=== PATIENT | male | born 1950 | race Two or more races ===

== ENCOUNTER 2019-01-13 18:10 | Emergency (ER) | payer OTHER ==
[~2019-01-13] VITALS: Ht 165.1 cm; Wt 71.2 kg
[~2019-01-13 18:10] MED LIST: COLACE100 MG PO; PERCOCET 5-3251 EACH PO
== END 2019-01-13 22:35 | disposition home or self-care (01) ==
LOC: ER 18:10
DX: K60.0 Acute anal fissure (principal); R60.0 Localized edema